=== PATIENT | female | born 1985 | race Caucasian/White ===

== ENCOUNTER → 2016-05-29 | Outpatient (CLI) | payer OTHER ==
[2016-05-29 09:56] LABS: Basophils % (A) 0 %; Eosinophils # (A) 0.2 k/uL (0-0.7); Eosinophils % (A) 2 %; HCT 39.4 % (34.0-46.0); HDW 3.11; HGB 13.1 gm/dL (11.4-16.0); Luc # (Auto) 0.17; Luc % (Auto) 2; Lymphocytes # (A) 2.9 k/uL (1.0-4.8); Lymphocytes % (A) 27 %; MCH 28.5 pg (25.0-35.0); MCHC 33.3 g/dL (31.0-37.0); MCV 85.7 fL (80.0-100.0); Mean Platelet Volume 7.2; Monocytes # (A) 0.3 k/uL (0-1.0); Monocytes % (A) 3 %; Neutrophils # (A) 6.9 k/uL (1.3-7.7); Neutrophils % (A) 66 %; RDW 13.3 % (11.5-15.5); WBC 10.5 k/uL (3.8-10.6); WBC (Perox) 11.08
[2016-05-29 10:37] LABS: ALT 31 U/L (9-52); AST 21 U/L (14-36); Alkaline Phosphatase 131 U/L (38-126); Anion Gap 13 mmol/L; Blood Urea Nitrogen 16 mg/dL (7-17); Calcium 9.9 mg/dL (8.4-10.2); Carbon Dioxide 25 mmol/L (22-30); Chloride 105 mmol/L (98-107); Cholesterol 219 mg/dL (<200); Glucose 90 mg/dL (74-99); HDL Cholesterol 56 mg/dL (40-60); Non-African American GFR(MDRD) >60 (>60 ml/min/1.73 sqM); Potassium 4.1 mmol/L (3.5-5.1); Sodium 143 mmol/L (137-145); Total Bilirubin 0.5 mg/dL (0.2-1.3); Total Protein 8.1 g/dL (6.3-8.2); Triglycerides 253 mg/dL (<150)
== END | disposition home or self-care (01) ==
LOC: LABWHC1 09:11
PROVIDERS: ATTEND Family Medicine
DX: F33.0 Major depressive disorder, recurrent, mild (principal); F33.1 Major depressive disorder, recurrent, moderate; Z68.39 Body mass index [BMI] 39.0-39.9, adult
CPT/HCPCS: 36415; 80053; 80061; 84443; 85025

== ENCOUNTER → 2016-09-28 | Outpatient (CLI) | payer OTHER ==
[2016-09-28 10:19] LABS: Alkaline Phosphatase 130 U/L (38-126); Cholesterol 254 mg/dL (<200); HDL Cholesterol 53 mg/dL (40-60); Triglycerides 176 mg/dL (<150)
== END | disposition home or self-care (01) ==
LOC: LABWHC1 09:36
PROVIDERS: ATTEND Family Medicine
DX: E78.2 Mixed hyperlipidemia (principal)
CPT/HCPCS: 36415; 80061; 84075

== ENCOUNTER 2016-10-11 14:51 | Emergency (ER) | payer OTHER ==
[2016-10-11 15:30] VITALS: BP 117/79; PULSE 87; RESP 18; TEMP 98.1
[2016-10-11] MEDS ORDERED: PROPARACAINE 0.5% OPHTH DROPS 15 ML BTL BOTH EYES STA (15:47)
[2016-10-11] MEDS ORDERED: ERYTHROMYCIN 5 MG/GM OPHTH OINT 3.5 GM TUBE RIGHT EYE STA (15:54)
--- NOTE | 2016-10-11 15:55 | ED ---
Eye Problem HPI - General Chief complaint: Eye Problems Stated complaint: Eye Problem Time Seen by Provider: 10/11/16 15:46 Source: patient, RN notes reviewed, old records reviewed Mode of arrival: ambulatory Limitations: no limitations - History of Present Illness Initial comments: 31-year-old female presents the ER chief complaint of right eye pain for the past day. Patient reports is worse with bright lights. She denies any specific drainage from the eye or crusting. She states the eye is not red. Patient reports that the pain is worse with bright lights. She denies any change in her visual acuity. She does wear glasses. She states he doesn't wear contacts. Patient states that she is unsure if there is something in her entire scratched it. - Related Data Home Medications Medication Instructions Recorded Confirmed Pnv,Calcium 72/Iron/Folic Acid 1 each PO 08/26/15 08/26/15 [ Plus Tablet] Previous Rx's Medication Instructions Recorded Acetaminophen-Codeine 300-30mg 1 tab PO Q4H PRN #30 tablet 08/31/15 [Tylenol #3] Ibuprofen [Motrin] 600 mg PO Q6HR PRN #30 tab 08/31/15 Allergies Allergy/AdvReac Type Severity Reaction Status Date / Time No Known Allergies Allergy Verified 10/11/16 15:30 Review of Systems ROS Statement: Those systems with pertinent positive or pertinent negative responses have been documented in the HPI. ROS Other: All systems not noted in ROS Statement are negative. Past Medical History Past Medical History: No Reported History History of Any Multi-Drug Resistant Organisms: None Reported Past Surgical History: Tonsillectomy Additional Past Surgical History / Comment(s): 1997 Past Anesthesia/Blood Transfusion Reactions: No Reported Reaction Past Psychological History: Depression Smoking Status: Never smoker Past Alcohol Use History: None Reported Past Drug Use History: None Reported - Past Family History Father Family Medical History: COPD, Hypertension General Exam - General Exam Comments Initial Comments: Well-appearing 31-year-old female. No distress. Limitations: no limitations General appearance: alert, in no apparent distress Head exam: Present: atraumatic, normocephalic, normal inspection Eye exam: Present: normal appearance, PERRL, EOMI. Absent: scleral icterus, conjunctival injection, periorbital swelling ENT exam: Present: normal exam, mucous membranes moist Neck exam: Present: normal inspection. Absent: tenderness, meningismus, lymphadenopathy Respiratory exam: Present: normal lung sounds bilaterally. Absent: respiratory distress, wheezes, rales, rhonchi, stridor Cardiovascular Exam: Present: regular rate GI/Abdominal exam: Present: soft, normal bowel sounds. Absent: distended, tenderness, guarding, rebound, rigid Extremities exam: Present: normal inspection, full ROM, normal capillary refill. Absent: tenderness, pedal edema, joint swelling, calf tenderness Back exam: Present: normal inspection Neurological exam: Present: alert, oriented X3, CN II-XII intact Psychiatric exam: Present: normal affect, normal mood Skin exam: Present: warm, dry, intact, normal color. Absent: rash Course Vital Signs 10/11/16 10/11/16 10/11/16 15:28 16:22 16:27 Temperature 98.1 F 98.1 F 98.1 F Pulse Rate 87 87 87 Respiratory 18 18 18 Rate Blood Pressure 117/79 117/79 117/79 O2 Sat by Pulse 97 97 97 Oximetry Medical Decision Making - Medical Decision Making 31-year-old female presents the ER chief complaint of right eye pain for the past day. Patient reports is worse with bright lights. She denies any specific drainage from the eye or crusting. She states the eye is not red. Patient reports that the pain is worse with bright lights. She denies any change in her visual acuity. She does wear glasses. She states he doesn't wear contacts. [facility] eye exam preformed, shows evidence of small corneal abrasion over pupil at 12 oclock position. Patient started on erythromycin ointment. Return paramters and followup with opthalmologist discussed. Disposition Clinical Impression: Corneal abrasion Disposition: HOME SELF-CARE Condition: Good Instructions: Corneal Abrasion (ED) Additional Instructions: Patient advised to apply antibiotic ointment 4 times a day in the eye. Continue use saline eyedrops. Follow-up with surgical supervisor if symptoms continue persist. Return to the emergency department if any alarming signs or symptoms occur. Referrals: Floyd Gillis Jr, DO [Primary Care Provider] - 1-2 days Artemio Johnson MD [STAFF PHYSICIAN] - 1-2 days Time of Disposition: 16:18
== END 2016-10-11 16:27 | disposition home or self-care (01) ==
LOC: EC 14:51
DX: S05.01XA Injury of conjunctiva and corneal abrasion without foreign body, right eye, initial encounter (principal); Z79.899 Other long term (current) drug therapy; X58.XXXA Exposure to other specified factors, initial encounter
CPT/HCPCS: 99283

== ENCOUNTER → 2018-02-07 | Outpatient (CLI) | payer OTHER ==
[2018-02-07 12:27] LABS: Basophils % (A) 0 %; Eosinophils # (A) 0.2 k/uL (0-0.7); Eosinophils % (A) 2 %; HCT 40.4 % (34.0-46.0); HGB 13.4 gm/dL (11.4-16.0); Lymphocytes # (A) 3.3 k/uL (1.0-4.8); Lymphocytes % (A) 29 %; MCH 28.7 pg (25.0-35.0); MCHC 33.2 g/dL (31.0-37.0); MCV 86.6 fL (80.0-100.0); Mean Platelet Volume 7.3; Monocytes # (A) 0.3 k/uL (0-1.0); Monocytes % (A) 3 %; Neutrophils # (A) 7.3 k/uL (1.3-7.7); Neutrophils % (A) 65 %; Platelet Count 321 k/uL (150-450); RBC 4.66 m/uL (3.80-5.40); RDW 13.3 % (11.5-15.5); WBC 11.3 k/uL (3.8-10.6)
[2018-02-07 12:34] LABS: ALT 31 U/L (9-52); AST 23 U/L (14-36); Albumin 4.8 g/dL (3.5-5.0); Alkaline Phosphatase 133 U/L (38-126); Anion Gap 13 mmol/L; Blood Urea Nitrogen 14 mg/dL (7-17); Calcium 9.8 mg/dL (8.4-10.2); Carbon Dioxide 23 mmol/L (22-30); Chloride 105 mmol/L (98-107); Cholesterol 239 mg/dL (<200); Glucose 86 mg/dL (74-99); HDL Cholesterol 46 mg/dL (40-60); LDL Cholesterol,Calculated 161 mg/dL (0-99); Potassium 4.2 mmol/L (3.5-5.1); Sodium 141 mmol/L (137-145); Total Bilirubin 0.8 mg/dL (0.2-1.3); Total Protein 8.3 g/dL (6.3-8.2); Triglycerides 159 mg/dL (<150)
== END ==
LOC: LABWHC1 10:42
PROVIDERS: ATTEND Family Medicine
DX: E78.2 Mixed hyperlipidemia (principal); F33.0 Major depressive disorder, recurrent, mild
CPT/HCPCS: 36415; 80053; 80061; 85025